=== PATIENT | male | born 1970 | race Caucasian/White ===

== ENCOUNTER 2017-05-26 14:00 | Emergency (ER) | payer OTHER ==
[~2017-05-26] VITALS: Ht 180.3 cm; Wt 110.0 kg
[~2017-05-26 14:00] MED LIST: BACL10TA PO; DICL75 PO; HYDR-3533 PO
[2017-05-26 14:02] VITALS: BP 165/86; PULSE 79; RESP 15; TEMP 98.1; O2SAT 98
--- NOTE | 2017-05-26 14:29 | PD ---
HPI Chief Complaint: Injury Time Seen by Provider: 14:11 Travel History International Travel<30 days: No Contact w/Intl Traveler<30days: No Traveled to known affect area: No History of Present Illness HPI 46-year-old male here with complaint of right sided ankle and foot pain. [place] toe [place]. He did not have any specific injury, trip or fall. He went about his daily activities and went home, took a nap and when he woke up noted that he was having a fair amount of pain along the lateral aspect of the ankle and foot, right side. He states that when he walks, it hurts a fair amount to bear weight. He has not noticed any deformity. There is mild amount of swelling per patient. 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 HEAD: Atraumatic. Normocephalic. EYES: No scleral icterus. No injection or drainage. ENT: Mucous membranes pink and moist. NECK: Supple CARDIOVASCULAR: Regular rate and rhythm. RESPIRATORY: No accessory muscle use. MUSCULOSKELETAL: No obvious deformities. Tenderness to palpation with mild swelling over the right lateral malleolus, lateral tarsal row and fifth/fourth metatarsals. Distal sensation, pulses, capillary refill intact. Range of motion is intact, patient is able to bear weight but when he does he has pain in the above areas. NEUROLOGICAL: Awake and alert.Motor grossly within normal limits. Normal speech. PSYCHIATRIC: Appropriate mood and affect; insight and judgment normal. Data Data Last Documented VS Vital Signs Date Time Temp Pulse Resp B/P Pulse Ox O2 Delivery O2 Flow Rate FiO2 05/26/17 14:02 98.1 79 15 165/86 98 Orders Ankle, Complete (Oqm0fpi) (05/26/17 ) Foot, Complete (Ulw2gbq) (05/26/17 ) [facility] Medical Decision Making Medical Screen Exam Complete: Yes Emergency Medical Condition: Yes Medical Record Reviewed: Yes Differential Diagnosis 46-year-old male with right sided ankle and foot pain after [place] the [place] this [place]. Differential includes sprain, stress fracture, fracture and less likely dislocation Narrative Course X-rays of the right ankle and foot were obtained showing calcaneal spurring but otherwise negative Diagnosis Primary Impression: Right foot sprain Qualified Code: S93.601A - Right foot sprain, initial encounter Additional Impression: Right ankle sprain Qualified Code: S93.401A - Sprain of right ankle, unspecified ligament, initial encounter Referrals: Primary Care Physician as needed Additional Instructions: Ice 20 minutes at a time 3-4 times daily. Renzo wrap or other compression device if you find this helpful to have extra support. You may ambulate as normal. Let pain be her guide. Tylenol, ibuprofen, Aleve as needed for pain. Med/Other Pt SpecificInfo: No Change to Meds Disposition: 01 DISCHARGE HOME Condition: Stable Alba Maher MD May 26, 2017 14:29
--- NOTE | 2017-05-26 14:44 | RADRPT ---
EXAM DATE/TIME: 05/26/2017 14:28 [facility] COMPARISON: No previous studies available for comparison. INDICATIONS : Pain after running. MEDICAL HISTORY : None. SURGICAL HISTORY : None. ENCOUNTER: Initial ACUITY: 2 days PAIN SCORE: 5/10 LOCATION: Right lateral ankle. FINDINGS: No definite fractures, or dislocations are identified. No definite lytic or sclerotic lesion is seen . The joint spaces are well maintained. Calcaneal spurs are present at the attachment site of the pl sandy aponeurosis and Achilles tendon. CONCLUSION: Unremarkable study except for calcaneal spurs. Shirley Anderson MD on May 26, 2017 at 14:42 Board Certified Radiologist. This report was verified electronically.
--- NOTE | 2017-05-26 14:45 | RADRPT ---
EXAM DATE/TIME: 05/26/2017 14:30 [facility] COMPARISON: No previous studies available for comparison. INDICATIONS : Pain after running. MEDICAL HISTORY : None. SURGICAL HISTORY : None. ENCOUNTER: Initial ACUITY: 2 days PAIN SCORE: 5/10 LOCATION: Right lateral foot. FINDINGS: No definite fractures, or dislocations are identified. No definite lytic or sclerotic lesion is seen . The joint spaces are well maintained. Calcaneal spurs are present at the attachment site of the pl sandy aponeurosis and Achilles tendon. CONCLUSION: Unremarkable study except for calcaneal spurs. Shirley Anderson MD on May 26, 2017 at 14:43 Board Certified Radiologist. This report was verified electronically.
== END 2017-05-26 15:32 | disposition home or self-care (01) ==
LOC: NEPD 14:00
DX: S93.601A Unspecified sprain of right foot, initial encounter (principal); S93.401A Sprain of unspecified ligament of right ankle, initial encounter; X58.XXXA Exposure to other specified factors, initial encounter; Y93.02 Activity, running; Y92.832 Beach as the place of occurrence of the external cause
CPT/HCPCS: 73610; 73630; 99283